=== PATIENT | female | born 2000 | race Caucasian/White ===

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

== ENCOUNTER 2021-07-09 15:44 | Emergency (ER) | payer MEDICAID ==
[~2021-07-09] VITALS: Ht 154.9 cm; Wt 54.5 kg
[~2021-07-09 15:44] MED LIST: BISA-155 PO
[2021-07-09 15:50] VITALS: BP 124/62
[2021-07-09] MEDS ORDERED: metoclopramide 10mg tablet PO ONE (15:50)
[2021-07-09] MEDS ORDERED: mag hydrox/Alum hydrox/simeth 30ml oral suspension PO ONE (15:50)
[2021-07-09] MEDS ORDERED: LIDOcaine Viscous 15ml cup MM ONE (15:50)
== END 2021-07-09 16:20 | disposition home or self-care (01) ==
LOC: ER 15:44
DX: O21.2 Late vomiting of pregnancy (principal); R10.84 Generalized abdominal pain; F15.90 Other stimulant use, unspecified, uncomplicated; R45.1 Restlessness and agitation; Z3A.20 20 weeks gestation of pregnancy; Z88.8 Allergy status to other drugs, medicaments and biological substances; Z79.899 Other long term (current) drug therapy
CPT/HCPCS: 99284; J8597